=== PATIENT | male | born 1960 | race American Indian/Alaskan Native ===

== ENCOUNTER 2021-03-02 12:45 | Emergency (ER) | payer OTHER ==
--- NOTE | 2021-03-02 13:02 | Emergency Department Report ---
ED CPR HPI - General Stated Complaint: CARDIAC ARREST Time Seen by Provider: 03/02/21 12:55 Source: EMS Limitations: Other (Cardiac arrest patient unresponsive) - History of Present Illness Initial Comments: Chief complaint: Cardiac arrest HPI: This is a 61-year-old male with history of hypertension and diabetes mellitus who presents in cardiac arrest. Patient was covered by family members to be nonresponsive. Upon arrival patient was pulseless unresponsive. Asystole initial rhythm. Asystole rhythm persisted throughout resuscitation via EMS. Patient received ACLS algorithm resuscitation for 42 minutes from 1202 to 1244. He received 4 doses of epinephrine. He received 1 dose of sodium bicarbonate. He received 1 dose of naloxone. Gilles airway inserted for ventilation. Daughter found patient unresponsive. stated that patient had nasal congestion and chest pain this morning. Otherwise he had not been ill. No history of cardiac disease. He receives care at the [facility]. No recent hospitalizations. Complaint: found unresponsive Place: home Initial Findings in the Field: unresponsive ROSC in the Field: No Associated Injuries: No Treatments Prior to Arrival: other airway device, epinephrine mgs # (4 doses of epinephrine), sodium bicarbonate (1 dose of sodium bicarbonate), other (Naloxone) - Related Data Allergies Allergy/AdvReac Type Severity Reaction Status Date / Time Unable to Assess Allergy Verified 03/02/21 13:11 ED Review of Systems ROS: Stated complaint: CARDIAC ARREST Other details as noted in HPI Comment: Unobtainable due to pts medical conditions (Cardiac arrest) ED Past Medical Hx - Past Medical History Previous Medical History?: Yes Hx Hypertension: Yes Hx Diabetes: Yes ED Physical Exam - General General appearance: other (Lifeless pale dusky colored skin no spontaneous movement, Tyrone device actively providing chest compressions) - Head Head exam: Present: atraumatic, normocephalic - Eye Eye exam: Present: other (Fixed dilated pupils, dry corneas) - ENT ENT exam: Present: other (Pale mucosa Gilles airway in place) - Neck Neck exam: Present: normal inspection - Respiratory Respiratory exam: Present: other (No spontaneous respirations, coarse equal breath sounds with ventilation) - Cardiovascular Cardiovascular Exam: Present: other (No palpable pulse, no auscultated cardiac sounds) - GI/Abdominal GI/Abdominal exam: Present: distended, diminished bowel sounds, other (No ecchymosis) - Extremities Exam Extremities exam: Present: other (Intraosseous device inserted tibial region of lower extremity, no deformity of the upper or lower extremities) - Neurological Exam Neurological exam: Present: other (Lifeless no spontaneous movement) - Psychiatric Psychiatric exam: Present: other (Lifeless no spontaneous movement) - Skin Skin exam: Present: pallor ED Medical Decision Making - Medical Decision Making Cardiac arrest, asystole confirmed in 3 leads. Patient received 42 minutes of ACLS resuscitation via EMS. Time of 1245. Critical care attestation.: If time is entered above; I have spent that time in minutes in the direct care of this critically ill patient, excluding procedure time. ED Disposition Clinical Impression: Cardiac arrest Disposition: 20 Is pt being admited?: No Does the pt Need Aspirin: No Time of Disposition: 12:45
== END 2021-03-03 05:19 ==
LOC: ED 12:45
DX: I46.9 Cardiac arrest, cause unspecified (principal)
CPT/HCPCS: 92950; 99285